=== PATIENT | female | born 1965 | race Caucasian/White ===

== ENCOUNTER 2016-08-18 16:24 | Inpatient (IN) | payer MEDICARE, OTHER ==
[~2016-08-18] VITALS: Ht 165.1 cm; Wt 142.0 kg
[2016-08-18 17:56] LABS: URINE BILIRUBIN NEGATIVE (NEGATIVE); URINE BLOOD NEGATIVE (NEGATIVE); URINE GLUCOSE (UA) NORMAL (NORMAL); URINE KETONE NEGATIVE (NEGATIVE); URINE LEUKOCYTE ESTERASE NEGATIVE (NEGATIVE); URINE NITRATE NEGATIVE (NEGATIVE); URINE PROTEIN NEGATIVE (NEGATIVE); UROBILINOGEN NORMAL mg/dL (<1.0)
[2016-08-19 08:00] LABS: BASO % 0.2 % (0.1-1.2); EOS # 0.1 10_X3_uL (0.0-0.4); EOS % 2.7 % (0.7-5.8); GRAN # 2.7 10_X3_uL (1.6-6.1); GRAN % 66.1 % (34.0-71.1); HEMATOCRIT 27.3 % (34-45); HEMOGLOBIN 8.7 g/dL (11.2-15.7); LYMPH # 0.8 10_X3_uL (1.2-3.7); LYMPH % 19.8 % (19.3-51.7); MEAN CORPUSCULAR HEMOGLOBIN 30.9 pg (27.0-33.0); MEAN CORPUSCULAR HGB CONC 31.9 g/dL (32.0-36.0); MEAN CORPUSCULAR VOLUME 96.8 fL (79-95); MEAN PLATELET VOLUME 10.1 fl (7.5-11.5); MONO # 0.5 10_X3_uL (0.2-0.9); MONO % 11.2 % (4.7-12.5); PLATELET COUNT 186 x10_3/uL (182-369); RED BLOOD COUNT 2.82 x10_6/uL (3.9-5.2); RED CELL DISTRIBUTION WIDTH 17.5 % (11.7-14.4); WHITE BLOOD COUNT 4.1 x10_3/uL (4.0-10.0)
[2016-08-19 08:23] LABS: BLOOD UREA NITROGEN 7 mg/dL (7-18); CARBON DIOXIDE 24 mmol/L (21-32); CREATININE 0.6 mg/dL (0.6-1.3); GLUCOSE,RANDOM 113 mg/dL (70-99); POTASSIUM 3.9 mmol/L (3.5-5.1); SODIUM 142 mmol/L (136-145)
[2016-08-20 07:06] LABS: BASO % 0.3 % (0.1-1.2); EOS # 0.1 10_X3_uL (0.0-0.4); EOS % 3.1 % (0.7-5.8); GRAN # 2.5 10_X3_uL (1.6-6.1); GRAN % 64.8 % (34.0-71.1); HEMATOCRIT 26.9 % (34-45); HEMOGLOBIN 8.7 g/dL (11.2-15.7); LYMPH # 0.8 10_X3_uL (1.2-3.7); LYMPH % 19.7 % (19.3-51.7); MEAN CORPUSCULAR HEMOGLOBIN 31.8 pg (27.0-33.0); MEAN CORPUSCULAR HGB CONC 32.3 g/dL (32.0-36.0); MEAN CORPUSCULAR VOLUME 98.2 fL (79-95); MEAN PLATELET VOLUME 10.2 fl (7.5-11.5); MONO # 0.5 10_X3_uL (0.2-0.9); MONO % 12.1 % (4.7-12.5); PLATELET COUNT 189 x10_3/uL (182-369); RED BLOOD COUNT 2.74 x10_6/uL (3.9-5.2); RED CELL DISTRIBUTION WIDTH 17.1 % (11.7-14.4); WHITE BLOOD COUNT 3.9 x10_3/uL (4.0-10.0)
[2016-08-20 07:20] LABS: BLOOD UREA NITROGEN 10 mg/dL (7-18); CALCIUM 8.1 mg/dL (8.7-10.7); CARBON DIOXIDE 26 mmol/L (21-32); CREATININE 0.7 mg/dL (0.6-1.3); GLUCOSE,RANDOM 117 mg/dL (70-99); POTASSIUM 3.7 mmol/L (3.5-5.1); SODIUM 143 mmol/L (136-145)
[2016-08-20 07:32] LABS: SERUM IRON 35 ug/dl (50-170); UIBC 185 ug/dL (135-370)
[2016-08-20 07:52] LABS: FERRITIN 109.7 ng/mL (11-307); FOLATE 9.98 ng/mL (3.17-24.25)
[2016-08-21 12:53] LABS: HEMATOCRIT 28.6 % (34-45); MEAN CORPUSCULAR HEMOGLOBIN 31.1 pg (27.0-33.0); MEAN CORPUSCULAR HGB CONC 31.5 g/dL (32.0-36.0); MEAN PLATELET VOLUME 10.1 fl (7.5-11.5); RED BLOOD COUNT 2.89 x10_6/uL (3.9-5.2); RED CELL DISTRIBUTION WIDTH 16.8 % (11.7-14.4); WHITE BLOOD COUNT 4.3 x10_3/uL (4.0-10.0)
[2016-08-23 07:06] LABS: BASO % 0.2 % (0.1-1.2); EOS # 0.1 10_X3_uL (0.0-0.4); EOS % 2.9 % (0.7-5.8); GRAN # 2.8 10_X3_uL (1.6-6.1); GRAN % 66.2 % (34.0-71.1); HEMATOCRIT 27.2 % (34-45); HEMOGLOBIN 8.2 g/dL (11.2-15.7); LYMPH # 0.8 10_X3_uL (1.2-3.7); LYMPH % 19.7 % (19.3-51.7); MEAN CORPUSCULAR HEMOGLOBIN 30.3 pg (27.0-33.0); MEAN CORPUSCULAR HGB CONC 30.1 g/dL (32.0-36.0); MEAN CORPUSCULAR VOLUME 100.4 fL (79-95); MEAN PLATELET VOLUME 9.8 fl (7.5-11.5); MONO # 0.5 10_X3_uL (0.2-0.9); PLATELET COUNT 198 x10_3/uL (182-369); RED BLOOD COUNT 2.71 x10_6/uL (3.9-5.2); RED CELL DISTRIBUTION WIDTH 16.5 % (11.7-14.4); WHITE BLOOD COUNT 4.2 x10_3/uL (4.0-10.0)
[2016-08-23 07:25] LABS: BLOOD UREA NITROGEN 10 mg/dL (7-18); CALCIUM 8.2 mg/dL (8.7-10.7); CARBON DIOXIDE 27 mmol/L (21-32); CREATININE 0.7 mg/dL (0.6-1.3); GLUCOSE,RANDOM 124 mg/dL (70-99); POTASSIUM 3.8 mmol/L (3.5-5.1); SODIUM 142 mmol/L (136-145)
[2016-08-24 10:28] LABS: HEMATOCRIT 28.3 % (34-45); HEMOGLOBIN 8.6 g/dL (11.2-15.7)
[2016-08-27 06:44] LABS: BASO % 0.3 % (0.1-1.2); EOS # 0.1 10_X3_uL (0.0-0.4); EOS % 1.6 % (0.7-5.8); GRAN # 2.4 10_X3_uL (1.6-6.1); GRAN % 64.6 % (34.0-71.1); HEMATOCRIT 29.7 % (34-45); HEMOGLOBIN 9.1 g/dL (11.2-15.7); LYMPH # 0.8 10_X3_uL (1.2-3.7); MEAN CORPUSCULAR HEMOGLOBIN 30.7 pg (27.0-33.0); MEAN CORPUSCULAR HGB CONC 30.6 g/dL (32.0-36.0); MEAN CORPUSCULAR VOLUME 100.3 fL (79-95); MEAN PLATELET VOLUME 10.5 fl (7.5-11.5); MONO # 0.5 10_X3_uL (0.2-0.9); MONO % 12.5 % (4.7-12.5); PLATELET COUNT 239 x10_3/uL (182-369); RED BLOOD COUNT 2.96 x10_6/uL (3.9-5.2); RED CELL DISTRIBUTION WIDTH 16.5 % (11.7-14.4); WHITE BLOOD COUNT 3.8 x10_3/uL (4.0-10.0)
[2016-08-27 07:08] LABS: BLOOD UREA NITROGEN 12 mg/dL (7-18); CALCIUM 8.6 mg/dL (8.7-10.7); CARBON DIOXIDE 27 mmol/L (21-32); CREATININE 0.7 mg/dL (0.6-1.3); GLUCOSE,RANDOM 131 mg/dL (70-99); POTASSIUM 3.6 mmol/L (3.5-5.1); SODIUM 142 mmol/L (136-145)
[2016-08-30 07:14] LABS: HEMATOCRIT 27.6 % (34-45); HEMOGLOBIN 8.5 g/dL (11.2-15.7); MEAN CORPUSCULAR HEMOGLOBIN 30.8 pg (27.0-33.0); MEAN CORPUSCULAR HGB CONC 30.8 g/dL (32.0-36.0); MEAN PLATELET VOLUME 10.7 fl (7.5-11.5); RED BLOOD COUNT 2.76 x10_6/uL (3.9-5.2); WHITE BLOOD COUNT 3.8 x10_3/uL (4.0-10.0)
[2016-08-30 07:37] LABS: BLOOD UREA NITROGEN 14 mg/dL (7-18); CALCIUM 8.5 mg/dL (8.7-10.7); CARBON DIOXIDE 27 mmol/L (21-32); CREATININE 0.6 mg/dL (0.6-1.3); GLUCOSE,RANDOM 116 mg/dL (70-99); POTASSIUM 3.8 mmol/L (3.5-5.1); SODIUM 141 mmol/L (136-145)
[2016-08-30 15:04] LABS: PH,URINE 6.5 (5.0 - 9.0); URINE BILIRUBIN NEGATIVE (NEGATIVE); URINE BLOOD TRACE (NEGATIVE); URINE GLUCOSE (UA) NORMAL (NORMAL); URINE KETONE NEGATIVE (NEGATIVE); URINE LEUKOCYTE ESTERASE TRACE (NEGATIVE); URINE NITRATE NEGATIVE (NEGATIVE); URINE PROTEIN TRACE (NEGATIVE); UROBILINOGEN NORMAL mg/dL (<1.0)
[2016-08-30 15:30] LABS: URINE BACTERIA TRACE (NONE SEEN); URINE RBC RARE /[HPF] (0-2); URINE SQUAMOUS EPITHELIAL CELL 0-10 /[HPF] (NONE SEEN); URINE WBC RARE /[HPF] (0-5); URINE YEAST FEW (NONE SEEN)
== END 2016-08-31 13:25 | disposition home or self-care (01) | DRG 558 ==
LOC: SWING 16:24
PROVIDERS: ADMIT Family Medicine
DX: M62.50 Muscle wasting and atrophy, not elsewhere classified, unspecified site (principal); I96 Gangrene, not elsewhere classified; I31.9 Disease of pericardium, unspecified; Z96.641 Presence of right artificial hip joint; L93.0 Discoid lupus erythematosus; D64.9 Anemia, unspecified; R30.0 Dysuria; R19.5 Other fecal abnormalities; I12.9 Hypertensive chronic kidney disease with stage 1 through stage 4 chronic kidney disease, or unspecified chronic kidney disease; N18.9 Chronic kidney disease, unspecified; I25.10 Atherosclerotic heart disease of native coronary artery without angina pectoris; E03.9 Hypothyroidism, unspecified; M79.7 Fibromyalgia; S71.101D Unspecified open wound, right thigh, subsequent encounter; R60.0 Localized edema; K64.8 Other hemorrhoids; K59.00 Constipation, unspecified; R53.1 Weakness; M54.9 Dorsalgia, unspecified; M25.50 Pain in unspecified joint; R39.89 Other symptoms and signs involving the genitourinary system; M25.551 Pain in right hip; N30.20 Other chronic cystitis without hematuria; Z79.82 Long term (current) use of aspirin; Z79.891 Long term (current) use of opiate analgesic; Z88.8 Allergy status to other drugs, medicaments and biological substances; Z83.3 Family history of diabetes mellitus; Z80.9 Family history of malignant neoplasm, unspecified
CPT/HCPCS: 36415; 73502; 73700; 80048; 81001; 81003; 82607; 82728; 82746; 83540; 83550; 85014; 85018; 85025; 87070; 93971; 97110; 97116; 97530; 99070; G0328-QW; J3420